=== PATIENT | male | born 2000 | race Hispanic/Latino ===

== ENCOUNTER 2024-11-02 13:31 | Outpatient (CLI) | payer SELFPAY ==
[2024-11-02 15:29] LABS: Hematocrit 46.4 % (42.0-52.0); Hemoglobin 15.0 g/dL (14.0-18.0); Mean Corpuscular Hemoglobin 29.3 pg (27.0-31.0); Mean Corpuscular Volume 90.6 fL (78.0-98.0); Platelet Count 235 10x3/uL (130-400); Red Blood Cell (RBC) Count 5.12 mill/uL (4.70-6.10); White Blood Cell (WBC) Count 9.30 10x3/uL (4.8-10.8)
[2024-11-02 15:47] LABS: INR-International Normal Ratio 1.1; PTT 31.4 sec (22.9-36.1); Prothrombin Time 14.3 sec (12.0-14.7)
[2024-11-02 16:01] LABS: Anion Gap 15 mmol/L (10-20); BUN (Urea Nitrogen) 15 mg/dL (8.9-20.6); Calc. Creatinine Clearance 0 mL/min (70-130); Calcium 9.2 mg/dL (7.8-10.44); Carbon Dioxide 26 mmol/L (22-29); Chloride 105 mmol/L (98-107); Glucose 89 mg/dL (70-105); Potassium 3.8 mmol/L (3.5-5.1); Sodium 142 mmol/L (136-145)
[2024-11-02 16:31] LABS: Bacteria/HPF None Seen HPF (None Seen); Glucose, Urine (Dipstick) Normal (Negative); Leukocyte Negative Leu/uL (Negative); Protein, Urine (Dipstick) Negative (Neg-Trace); RBC/HPF 0-3 HPF (0-3); Specific Gravity, Urine 1.024 (1.002-1.036); WBC/HPF 0-3 HPF (0-3)
== END 2024-11-02 13:32 | disposition home or self-care (01) ==
LOC: LABBT 13:31
PROVIDERS: ATTEND Urology
DX: Z01.812 Encounter for preprocedural laboratory examination (principal); N50.89 Other specified disorders of the male genital organs
CPT/HCPCS: 80048; 81001; 85027; 85610; 85730; 87086

== ENCOUNTER 2024-11-25 11:01 | Day surgery (SDC) | payer SELFPAY ==
[2024-11-24 12:51] VITALS: BMI 22.9
[2024-11-25] MEDS ORDERED: PROPOFOL 20 ML ONE ×2 (15:25→16:19)
[2024-11-25] MEDS ORDERED: fentaNYL PF 100 MCG/2 ML SYRINGE ONE ×2 (15:25→16:02)
[2024-11-25] MEDS ORDERED: Lidocaine 1% PF 5 ML VIAL ONE (15:26)
[2024-11-25] MEDS ORDERED: Ondansetron PF 4 MG/2 ML Vial ONE (15:26)
[2024-11-25] MEDS ORDERED: CEFAZOLIN 1 GM VIAL ONE (15:39)
[2024-11-25] MEDS ORDERED: HYDROmorphone 0.5 MG/0.5 ML SYRINGE ONE (16:25)
[2024-11-25] MEDS ORDERED: Bupivacaine 0.25% HCL 30 ML VIAL ONE (16:31)
== END 2024-11-25 19:35 | disposition home or self-care (01) ==
LOC: SDC 11:01
PROVIDERS: ATTEND Urology
PROC: 0VTB0ZZ Resection of Left Testis, Open Approach (ICD-10-PCS; principal; 2024-11-25)
DX: C62.92 Malignant neoplasm of left testis, unspecified whether descended or undescended (principal)
CPT/HCPCS: 88305; 88341; 88342; J0169; J0665; J0690; J1100; J1171; J2250; J2704